=== PATIENT | female | born 1990 | race Caucasian/White ===

== ENCOUNTER 2016-02-22 10:08 | Emergency (ER) | payer BC ==
[2016-02-22 11:49] VITALS: BP 120/61
--- NOTE | 2016-02-22 12:42 | UC ---
Lower Extremity/Ankle HPI - HPI Summary HPI Summary: had foot planted then twisted had sudden onset of pain in top of foot - History of Current Complaint Chief Complaint: UCLowerExtremity Stated Complaint: LEFT FOOT PAIN Time Seen by Provider: 02/22/16 12:41 Hx Obtained From: Patient Hx Last Menstrual Period: 02/02/16 ?: No Onset/Duration: Sudden Onset, Lasting Days - 1, Still Present Severity Initially: Moderate Severity Currently: Moderate Pain Intensity: 5 - worse with ambulation Pain Scale Used: 0-10 Numeric Aggravating Factor(s): Standing, Ambulation Alleviating Factor(s): Rest, Elevation Able to Bear Weight: Yes - with pain - Allergies/Home Medications Allergies/Adverse Reactions: Allergies Allergy/AdvReac Type Severity Reaction Status Date / Time No Known Allergies Allergy Verified 02/22/16 11:49 Home Medications: Home Medications Melatonin [Melatonin Adult Gummies] 2.5 mg PO 02/22/16 [History] Multiple Vitamins W/ Minerals [Multivitamin Gummies Wome] 1 chw PO 02/22/16 [ History] PMH/Surg Hx/FS Hx/Imm Hx Previously Healthy: Yes Endocrine History Of: Denies: Diabetes, Thyroid Disease Cardiovascular History Of: Denies: Cardiac Disorders, Hypertension Respiratory History Of: Denies: COPD, Asthma GI/ History Of: Denies: Ulcer - Surgical History Surgical History: Yes Surgery Procedure, Year, and Place: bilat tubes to ears - Family History Known Family History: Positive: None Family History: no cardio vascular issues in family lineage - Social History Occupation: Employed Full-time Lives: With Family Alcohol Use: Rare Substance Use Type: None Smoking Status (MU): Never Smoked Tobacco Review of Systems Constitutional: Negative Skin: Negative Eyes: Negative ENT: Negative Respiratory: Negative Cardiovascular: Negative Gastrointestinal: Negative Genitourinary: Negative Motor: Negative Neurovascular: Negative Musculoskeletal: Arthralgia - ankle ok---lateral foot pain Neurological: Negative Psychological: Negative All Other Systems Reviewed And Are Negative: Yes Physical Exam Triage Information Reviewed: Yes Appearance: Well-Appearing, Well-Nourished, Pain Distress - mild Vital Signs: Initial Vital Signs Temp 98.1 F 02/22/16 11:44 Pulse 90 02/22/16 11:44 Resp 18 02/22/16 11:44 BP 120/61 02/22/16 11:44 Pulse Ox 100 02/22/16 11:44 Vital Signs Reviewed: Yes Eye Exam: Normal Eyes: Positive: Conjunctiva Clear ENT Exam: Normal ENT: Positive: Normal ENT inspection, Hearing grossly normal. Negative: Nasal congestion, Nasal drainage, Trismus, Muffled/hoarse voice Neck exam: Normal Neck: Positive: Supple, Nontender, No Lymphadenopathy Respiratory Exam: Normal Respiratory: Positive: Chest non-tender, No respiratory distress, No accessory muscle use Cardiovascular Exam: Normal Cardiovascular: Positive: Pulses Normal, Brisk Capillary Refill Musculoskeletal Exam: Normal Musculoskeletal: Positive: Strength Intact, ROM Intact, No Edema Neurological Exam: Normal Neurological: Positive: Alert Psychological Exam: Normal Skin Exam: Normal Diagnostics - Laboratory Diagnostic Studies Completed/Ordered: non-displaced left 5th metatarsal fx Lower Extremity Course/Dx - Course Course Of Treatment: NWB, CAM Boot, crutches, rice, pain med, follow with orto, off work until cleared by ortho - Differential Dx/Diagnosis Differential Diagnosis/HQI/PQRI: Contusion, Fracture (Closed), Sprain, Strain Provider Diagnoses: Non-displaced left 5th metatarsal fracture Discharge - Discharge Plan Condition: Stable Disposition: HOME Prescriptions: HYDROcodone/ACETAMIN 5-325 MG* [[place] 5-325 TAB*] 1 tab PO Q6H PRN #20 tab MDD 4 PRN Reason: pain Ibuprofen TAB* [Motrin TAB* 600 MG] 600 mg PO Q6H PRN #30 tab PRN Reason: pain Patient Education Materials: Crutch Instructions (ED), Foot Fracture in Adults (ED), RICE Therapy (ED) Forms: *Work Release Referrals: Laura Mcfarland MD [Medical Doctor] - 3 Days Petty Fritz RN [Primary Care Provider] - Additional Instructions: Maintain NON_WEIGHT BEARING ON Fractured Foot until advised further by Orthopedic
--- NOTE | 2016-02-22 13:28 | RAD ---
HISTORY: Injury to the left foot COMPARISONS: None VIEWS: 3, Frontal, lateral, and oblique views of the left foot FINDINGS: BONE DENSITY: Normal. BONES: There is a nondisplaced transverse fracture of the proximal aspect of the left fifth metatarsal approximately 1.9 cm from the articulation with the cuboid. JOINTS: There is no arthropathy. ALIGNMENT: There is no dislocation. SOFT TISSUES: Unremarkable. OTHER FINDINGS: None. IMPRESSION: NONDISPLACED FRACTURE OF THE PROXIMAL FIFTH METATARSAL
== END 2016-02-22 14:00 | disposition home or self-care (01) ==
LOC: UCEAST 10:08
DX: S92.355A Nondisplaced fracture of fifth metatarsal bone, left foot, initial encounter for closed fracture (principal); X50.1XXA Overexertion from prolonged static or awkward postures, initial encounter; Y93.9 Activity, unspecified; Y92.9 Unspecified place or not applicable
CPT/HCPCS: 99203; G0463

== ENCOUNTER 2017-05-14 16:32 | Emergency (ER) | payer BC ==
[2017-05-14 17:26] VITALS: BP 96/64
--- NOTE | 2017-05-14 18:39 | UC ---
Fabio Hendrix Gabriel, scribed for Dariela Delacruz MD on 05/14/17 at 1831 . Throat Pain/Nasal James HPI - HPI Summary HPI Summary: This patient is a 27 year old F presenting to [facility] [place] [facility] [place] with a chief complaint of nasal congestion since 05-11-17. The patient rates the symptoms 8/10 in severity. Patient reports sore throat, fever, chills, fatigue, ear pain, and a slight cough. Patient denies n/v/d. Past history of sinusitis in the past, responded to antibiotics and flonase. - History of Current Complaint Chief Complaint: UCGeneralIllness Stated Complaint: SINUS CONGESTION, AND SORE THROAT Time Seen by Provider: 05/14/17 18:24 Hx Obtained From: Patient Hx Last Menstrual Period: 05/06/2017 Onset/Duration: Still Present Severity: Moderate Pain Intensity: 8 Pain Scale Used: 0-10 Numeric Associated Signs & Symptoms: Positive: Negative - n/v/d, Other - sore throat, fever, chills, fatigue, ear pain, slight cough. - Allergies/Home Medications Allergies/Adverse Reactions: Allergies Allergy/AdvReac Type Severity Reaction Status Date / Time Penicillins Allergy Hives Verified 05/14/17 17:26 Home Medications: Home Medications guaiFENesin [Mucinex] 600 mg PO 05/14/17 [History] PMH/Surg Hx/FS Hx/Imm Hx Previously Healthy: Yes Respiratory History: Other - allergies Other Respiratory History: allergies Other History Of: Negative For: Anticoagulant Therapy - Surgical History Surgical History: Yes Surgery Procedure, Year, and Place: bilat tubes to ears - Family History Known Family History: Positive: None Negative: Respiratory Disease, Seizure Disorder Family History: no cardio vascular issues in family lineage - Social History Occupation: Employed Full-time Lives: With Family Alcohol Use: Rare Substance Use Type: None Smoking Status (MU): Never Smoked Tobacco Review of Systems Constitutional: Fever, Chills Skin: Negative Eyes: Negative ENT: Sore Throat, Ear Ache, Sinus Congestion Respiratory: Cough Cardiovascular: Negative Gastrointestinal: Negative Genitourinary: Negative Motor: Negative Neurovascular: Negative Musculoskeletal: Negative Neurological: Negative Psychological: Negative Is Patient Immunocompromised?: No All Other Systems Reviewed And Are Negative: Yes Physical Exam Triage Information Reviewed: Yes Appearance: Ill-Appearing - congested and looks mildly unwell Vital Signs: Initial Vital Signs Temp 97.1 F 05/14/17 17:20 Pulse 96 05/14/17 17:20 Resp 18 05/14/17 17:20 BP 96/64 05/14/17 17:20 Pulse Ox 99 05/14/17 17:20 Vital Signs Reviewed: Yes Eyes: Positive: Conjunctiva Clear ENT: Positive: Pharyngeal erythema, Tonsillar swelling. Negative: Tonsillar exudate Neck: Positive: Supple, Nontender, Enlarged Nodes @ - tonsillar Respiratory: Positive: Lungs clear, Normal breath sounds Cardiovascular: Positive: RRR, No Murmur Musculoskeletal Exam: Normal Neurological: Positive: Alert, Muscle Tone Normal Skin Exam: Normal Throat Pain/Nasal Course/Dx - Course Course Of Treatment: doxycycline for treatment of sinusitis; flonase. Assessment/Plan: Pt medications reviewed this visit. Allergies noted. - Differential Dx/Diagnosis Differential Diagnosis/HQI/PQRI: Pharyngitis, Sinusitis, Tonsillitis, URI Provider Diagnoses: acute bilateral maxillary sinusitis. Discharge - Sign-Out/Discharge Documenting (check all that apply): Discharge - Discharge Plan Condition: Stable Disposition: HOME Prescriptions: DOXYcycline CAP(*) [DOXYcycline 100MG CAP(*)] 100 mg PO BID #20 cap Patient Education Materials: Sinusitis (ED) Referrals: Sarah Beth DWYERPPetty [Primary Care Provider] - Additional Instructions: Begin use of flonase in addition to the neti pot to promote sinus drainage. HOLD YOUR MULTIVITAMIN DURING THE TIME YOU TAKE THE ANTIBIOTIC BECAUSE IT CAN INTERFERE WITH THE ABSORPTION OF IT. USE ADDITIONAL CONTRACEPTION BECAUSE THE ANTIBIOTIC CAN DECREASE THE EFFECTIVENESS OF YOUR ORAL CONTRACEPTIVE. Ensure increase in fluids and rest. - Billing Disposition and Condition Condition: STABLE Disposition: HOME The documentation as recorded by the Fabio siegel Gabriel accurately reflects the service I personally performed and the decisions made by me, Dariela Delacruz MD.
== END 2017-05-14 19:00 | disposition home or self-care (01) ==
LOC: UCEAST 16:32
DX: J01.00 Acute maxillary sinusitis, unspecified (principal); Z88.0 Allergy status to penicillin
CPT/HCPCS: 99212; G0463